=== PATIENT | female | born 1985 | race Caucasian/White ===

== ENCOUNTER 2017-03-01 03:30 | Emergency (ER) | payer SELFPAY | END 2017-03-01 03:45 | disposition home or self-care (01) | LOC: ER 03:30 | PROC: 2W3TXYZ Immobilization of Left Foot using Other Device (ICD-10-PCS; principal; 2017-03-01) | DX: S92.422A Displaced fracture of distal phalanx of left great toe, initial encounter for closed fracture (principal); E11.9 Type 2 diabetes mellitus without complications; Z91.041 Radiographic dye allergy status; Z91.040 Latex allergy status; X58.XXXA Exposure to other specified factors, initial encounter | CPT/HCPCS: 73630-LT; 99283; A9270-GY ==